=== PATIENT | male | born 1955 | race Caucasian/White ===

== ENCOUNTER → 2018-08-11 | Outpatient (CLI) | payer BC ==
[~2018-08-11] MED LIST: IBUP800T37 PO; LOR5 PO; NO CURRENT MEDS
--- NOTE | 2018-08-11 16:41 | RADIOLOGY IMAGING REPORT ---
FACILITY: [facility] PATIENT NAME: Trey Jeffers : 1955 MR: [id number] V: [id number] EXAM DATE: ORDERING PHYSICIAN: VALDO ZAMORA TECHNOLOGIST: Location: [facility] Patient: Trey Jeffers : 1955 Visit/Account:[id number] Date of Sevice: 08/11/2018 L-SPINE 2 OR 3 VIEW History: Low back pain and right thigh pain ADDITIONAL CLINICAL HISTORY none COMPARISON STUDIES: None FINDINGS: Osseous structures: Normal. Spinal axis aligned. No compression fractures. Disc space height : There is moderate disc space narrowing L3-4 and advanced disc space narrowing L4 -5 and L5-S1 with near mnmg-et-ivlt abutment. There is associated anterior reactive endplate hypertr ophic changes at L4-5 and L5-S1. Soft tissues : Normal. IMPRESSION: Degenerative disc disease L3-4 through L5-S1 most advanced at L4-5 and L5-S1. Report Dictated By: Carter Nguyen MD at 08/11/2018 4:36 PM Report E-Signed By: Carter Nguyen MD at 08/11/2018 4:37 PM [id number]
== END ==
LOC: RAD 15:17
PROVIDERS: ATTEND Chiropractor
DX: M47.897 Other spondylosis, lumbosacral region (principal)
CPT/HCPCS: 72100